=== PATIENT | female | born 2000 | race Two or more races ===

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

== ENCOUNTER 2021-03-04 11:25 | Observation (INO) | payer MEDICAID ==
[~2021-03-04] VITALS: Ht 162.6 cm; Wt 108.9 kg
[2021-03-04] MEDS ORDERED: NIFEdipine 10 MG CAP PO ONE (12:45)
[2021-03-04] MEDS ORDERED: LACTATED RINGER'S 1,000 ML IV ONE (16:00)
== END 2021-03-04 17:50 | disposition home or self-care (01) ==
LOC: LDRP 11:25
PROVIDERS: ADMIT Obstetrics & Gynecology; ATTEND Obstetrics & Gynecology
DX: O62.9 Abnormality of forces of labor, unspecified (principal); Z3A.34 34 weeks gestation of pregnancy
CPT/HCPCS: 59025; 76815; 76817; 76818; 81002; 94760; 96360; 96361; G0378